=== PATIENT | male | born 1970 | race Two or more races ===

== ENCOUNTER 2023-06-11 00:47 | Emergency (ER) | payer MEDICAID, OTHER ==
[~2023-06-11] VITALS: Ht 195.6 cm; Wt 125.0 kg
[2023-06-11 03:34] LABS: Basophils # (auto) 0.1 10 ^3/uL (0-0.2); Basophils % (auto) 1.3 % (0.0-2.0); Eosinophils # (auto) 0.3 10 ^3/uL (0-0.8); Monocytes # (auto) 0.5 10 ^3/uL (0-1.3); White Blood Cell 7.1 10^3/uL (4.4-10.8)
[2023-06-11 03:35] LABS: Eosinophils % (auto) 4.8 % (0.0-7.0); Hematocrit 38.6 % (41.0-53.0); Hemoglobin 12.3 g/dL (13.5-17.5); Lymphocytes % (auto) 28.2 % (10.0-50.0); Mean Corpuscular Hemoglobin 23.4 pg (28.0-32.0); Mean Corpuscular Hgb Conc. 31.9 g/dL (32.0-36.0); Mean Corpuscular Volume 73.5 fL (80.0-100.0); Monocytes % (auto) 6.7 % (0.0-12.0); Neutrophils # (auto) 4.2 10 ^3/uL (1.6-8.6); Nucleated Red Blood Cells % 0.2 %; Red Blood Cells 5.26 10^6/uL (4.5-5.90); Red Cell Distribution Width 16.3 % (11.8-14.3)
[2023-06-11 03:48] LABS: Albumin 4.1 g/dL (3.4-5.0); BUN/Creatinine Ratio 14.1 (10.0-20.0); Magnesium 2.4 mg/dL (1.6-2.6); Potassium 3.8 mmol/L (3.5-5.1)
[2023-06-11 03:49] LABS: INR 1.01 (0.9-1.15); Prothrombin Time 10.6 sec (9.3-11.8)
[2023-06-11 03:51] LABS: Bilirubin, Total 0.3 mg/dL (0.2-1.0); Total Protein 7.9 g/dL (6.4-8.2)
[2023-06-11 04:29] LABS: Partial Thromboplastin Time 30.2 SEC (24.5-34.5)
[2023-06-11 06:34] LABS: Urine Bacteria NONE SEEN /hpf (None Seen); Urine Blood Negative /uL (Negative); Urine Clarity Clear (Clear); Urine Color Yellow (Yellow); Urine Mucus FEW (None Seen); Urine Protein, UAD Negative (Negative); Urine Specific Gravity 1.028 (1.001-1.035); Urine Urobilinogen Normal (Negative); Urine WBC 1 /hpf (0 - 3); Urine pH 5.5 (5.0-8.0)
[2023-06-11 08:22] VITALS: BP 118/63; PULSE 53; RESP 16; TEMP 97.9; O2SAT 98
== END 2023-06-11 08:06 | disposition home or self-care (01) ==
LOC: ER 00:51
DX: R60.0 Localized edema (principal); R53.1 Weakness; R20.0 Anesthesia of skin
CPT/HCPCS: 36415; 71045; 80053; 81001; 83605; 83735; 83880; 84484; 85025; 85379; 85610; 85730; 87040; 93970

== ENCOUNTER 2025-04-16 17:45 | Emergency (ER) | payer MEDICAID ==
[~2025-04-16] VITALS: Ht 185.4 cm; Wt 129.7 kg
--- NOTE | 2025-04-16 18:16 | ED.PDOC ---
Musculoskeletal HPI Comments HPI: 54-year-old male presents to the emergency department with a chief complaint of bilateral leg swelling onset 3 days. Patient began experiencing bilateral leg swelling 3 days ago, went to urgent care, was recommended to come to ED. Patient waited a few days, has been elevating legs, noticed swelling has significantly improved. He came to ED today due to fatigue, swelling not resolved. Denies any chest pain, shortness of breath, fever, chills, nausea, vomiting, diarrhea. No other symptoms or modifying factors present at this time. Initial Vitals BP: 112/79 HR: 60 RR: 18 O2 Sat: 98% Past Medical history: Neuropathy Past Surgical history: Denies Medications: Denies Social History: Denies Allergies: NKDA HPI: Poor Historian. REVIEW OF SYSTEMS: CONSTITUTIONAL: Denies acute: fever, diaphoresis, chills, HEAD: Denies acute: headache, photophobia Eyes: Denies acute: Double vision, vision loss, eye pain, eye discharge. EARS: Denies acute: tinnitus, hearing loss, ear discharge, ear pain, THROAT: Denies acute: sore throat, swelling, difficulty swallowing , pain with swallowing, change in voice. NECK: Denies acute: neck pain, neck swelling, stiff neck. HEART: Denies acute : chest pain, palpitations, LUNGS: Denies acute: SOB, wheezing, cough, hemoptysis ABDOMEN: Denies acute: abdominal pain, Nausea, Vomiting, diarrhea, melena , hematemesis, hematochezia SKIN: Denies acute: rash, redness, lesions, itchiness. EXTREMITIES: Denies acute: calf pain, numbness, tingling, weakness, Denies acute: Low back pain. Neuro: Denies acute: focal neurological deficit, motor or sensory focal neurological deficit, tremors, seizure like activity, confusion, dizziness, change in mental status, loss of bowel or bladder function, cauda equina like symptoms. : Denies acute: dysuria, hematuria, flank pain, increase in urinary frequency. PSYCH: Denies acute: hallucination, suicidal ideation, homicidal ideation. FEMALE: Denies acute: abnormal vaginal bleeding, foul odor, unusual discharge. PHYSICAL EXAM: General: -----no---acute distress, awake and alert. Head: normocephalic, atraumatic. Neck: supple, trachea is midline, no swelling. Throat: Normal phonation. Eyes:, no erythema, no purulent discharge, no proptosis, no icterus. Heart: regular rate, regular rhythm, no significant murmur appreciated. Lungs: no apparent respiratory distress, Able to speak in full sentences. No wheezing, no rhonchi, no crackles. No stridors Clear to auscultation bilaterally. Abdomen: non tender to palpation, non distended, soft, no guarding, no rebound, + bowel sounds. Neuro: Awake, Alert, oriented to name, self, situation, follows commands GCS=15. Speech is normal. Skin: no petechia, no purpura, no cyanosis, non-pale, not jaundice. Lower extremities: --no - Pitting edema no deformity, no focal swelling, no calf TTP. Makes eye contact. moves all four extremities. Face: no apparent facial droop. Ambulating in the ED independently. Pedal pulses are palpable. Bilaterally. Patient is neurovascularly intact bilateral lower extremities. ED COURSE: DISCLAIMER: This medical document was created using an electronic medical record system with voice recognition software and computerized dictation system. Although this document has been carefully reviewed, there might still be some phonetic and typographical errors. Occasional wrong-word or "sound-alike" substitutions may have occurred due to the inherent limitations of voice recognition software. These areas are purely typographical due to imperfections of the software programs and do not reflect any compromise in the patient's medical care. Please read the chart carefully and recognize, using context, where these substitutions have occurred. Time Seen by MD: 18:10 Reviewed Notes: Medications, Allergies Allergies: Coded Allergies: NO KNOWN ALLERGIES (Unverified , 04/16/25) Information Source: Patient Mode of Arrival: Ambulatory Location: Bilateral Extremity Location: Leg Timing: Days Prehospital treatment: None Severity: Moderate Able to Move Extremity: Yes Bear Weight: Fully Pain: Moderate Mechanism: Spontaneous Circumstances: Spontaneous Onset of Symptoms: Spontaneous Symptoms: Swelling DVT Risk Factors: NONE Associated signs and symptoms: Leg pain Past Medical History Past Medical History (Other): Neuropathy Surgical History: Denies all surgeries Family History Family History: Reviewed,noncontributory to illness Social History Smoker: Non-Smoker Alcohol: Denies ETOH Use Drugs: Denies Drug Use Lives In: Home Was a procedure done? Was a procedure done?: No Differential Diagnosis EXT Differential Diagnosis: Cellulitis, CHF, Deep Vein Thrombosis, Compartment Syndrome, Fracture, Sprain, DJD, Myocardial Infarction, Neurovascular injury X-Ray, Labs, Meds, VS Vital Signs Date Time Temp Pulse Resp B/P (MAP) Pulse Ox O2 Delivery O2 Flow Rate FiO2 04/16/25 19:53 98.7 50 16 112/73 (86) 99 98.7 04/16/25 19:53 50 16 99 Room Air 04/16/25 18:05 97.6 60 18 112/79 (90) 98 97.6 Lab Test 04/16/25 18:38 Range/Units White Blood Count 6.3 4.4-10.8 10^3/uL Red Blood Count 5.68 4.5-5.90 10^6/uL Hemoglobin 13.3 L 13.5-17.5 g/dL Hematocrit 41.1 41.0-53.0 % Mean Corpuscular Volume 72.3 L 80.0-100.0 fL Mean Corpuscular Hemoglobin 23.5 L 28.0-32.0 pg Mean Corpuscular Hemoglobin Concent 32.5 32.0-36.0 g/dL Red Cell Distribution Width 15.9 H 11.8-14.3 % Platelet Count 180 140-450 10^3/uL Mean Platelet Volume 8.6 6.9-10.8 fL Neutrophils (%) (Auto) 64.4 37.0-80.0 % Lymphocytes (%) (Auto) 25.2 10.0-50.0 % Monocytes (%) (Auto) 5.7 0.0-12.0 % Eosinophils (%) (Auto) 3.7 0.0-7.0 % Basophils (%) (Auto) 1.0 0.0-2.0 % Neutrophils # (Auto) 4.1 1.6-8.6 10 ^3/uL Lymphocytes # (Auto) 1.6 0.4-5.4 10 ^3/uL Monocytes # (Auto) 0.4 0-1.3 10 ^3/uL Eosinophils # (Auto) 0.2 0-0.8 10 ^3/uL Basophils # (Auto) 0.1 0-0.2 10 ^3/uL Nucleated Red Blood Cells 0.1 % Sodium Level 145 136-145 mmol/L Potassium Level 3.3 L 3.5-5.1 mmol/L Chloride Level 109 H 98-107 mmol/L Carbon Dioxide Level 25 20-31 mmol/L Anion Gap 11 5-15 Blood Urea Nitrogen 12 9-23 mg/dL Creatinine 1.06 0.700-1.30 mg/dL Glomerular Filtration Rate Calc 84 >90 mL/min BUN/Creatinine Ratio 11.3 10.0-20.0 Serum Glucose 78 74-106 mg/dL Calcium Level 9.9 8.7-10.4 mg/dL Total Bilirubin 0.7 0.2-1.0 mg/dL Aspartate Amino Transferase (AST) 19 <34 U/L Alanine Aminotransferase (ALT) 17 7-40 U/L Alkaline Phosphatase 67 46-116 U/L Troponin I High Sensitivity 5 </=54 ng/L C-Reactive Protein High Sensitivity 0.04 <1.0 mg/dL B-Type Natriuretic Peptide 45.89 0-100 pg/mL Total Protein 7.3 5.7-8.2 g/dL Albumin 4.8 3.2-4.8 g/dL [place] [address] Ph: [phone] DIAGNOSTIC IMAGING Diagnostic Imaging Report : [id number] Signed PATIENT: KENDY AMAYA ACCT: [id number] UNIT: [id number] : 1970 LOC: ER ROOM / BED: / AGE / SEX: 54 / M ADM STATUS: REG ER SERVICE [id number] ORDERING PHYSICIAN: MARY GROSS DO PROCEDURE(s): BLDVT - BiLat Lower DVT REASON: b/l leg swelling ORDER NUMBER(s): [id number], ACCESSION NUMBER(s): [id number] EXAM: US Duplex Bilateral Lower Extremities Veins CLINICAL INDICATION: b/l leg swelling TECHNIQUE: Real-time duplex ultrasound scan of the bilateral lower extremity veins integrating B-mode two-dimensional vascular structure, Doppler spectral analysis, color flow Doppler imaging and compression. COMPARISON: None FINDINGS: RIGHT DEEP VEINS: Unremarkable. No DVT in the right common femoral, femoral, proximal deep femoral or popliteal veins. The veins demonstrate normal color flow, are normally compressible, with normal phasic flow and/or augmentation response. RIGHT SUPERFICIAL VEINS: Unremarkable. No thrombus in the visualized right great saphenous vein. LEFT DEEP VEINS: Unremarkable. No DVT in the left common femoral, femoral, proximal deep femoral or popliteal veins. The veins demonstrate normal color flow, are normally compressible, with normal phasic flow and/or augmentation response. LEFT SUPERFICIAL VEINS: Unremarkable. No thrombus in the visualized left great saphenous vein. SOFT TISSUES: No acute findings. No popliteal cyst. OTHER FINDINGS: . IMPRESSION: No DVT. ATED BY: ALICIA JANSEN MD DICTATED DATE/TIME: 04/16/251912 SIGNED BY: ALICIA JANSEN MD SIGNED DATE/TIME: 04/16/251912 CC: Time of 1ST Reevaluation: 18:40 Reevaluation 1ST: Unchanged Patient Education/Counseling: Diagnosis, Treatment Family Education/Counseling: No Family Present Comments Patient presented with the above HPI.---leg swelling---workup was initiated. patient was found with the above mentioned diagnosis. Patient has no leg swelling on physical exam. He said his swelling has significantly improved if not completely resolved. He has history of neuropathy. the following medications were ordered: please refer to order lists of meds and tests obtained by myself Dr. Gross. Patient ED course and VS have been stabilized. Patient has been reassessed in the ED and remained in a stable condition. Pertinent incidental findings were discussed with the patient and/or family. Patient/family voices understanding and is agreeable with plan. Patient has been observed in the ED adequate length of time to insure improvement/stability. Escalation of care considered: Consideration of escalation to observation or admission Patient was DISCHARGED home in a stable condition. All the reports of any imaging studies that were ordered by myself were reviewed by myself. Departure 1 Departure Time of Disposition: 20:01 Impression: Primary Impression: Leg edema Additional Impression: Neuropathy Disposition: 01 HOME / SELF CARE / HOMELESS Condition: Stable Additional Instructions: Additional instructions: You MUST follow-up with your primary care/family doctor in 1 to 2 days. If you are unable to see your primary care/family doctor, please return to our emergency room for re-assessment and re-evaluation in 1 to 2 days. Return to the emergency room here in our facility or to the nearest ER [facility] if your symptoms change or worsen. CONSULTATIONS: you MUST Follow-up for consultation as soon as possible with: -vascular medicine doctor in 1-2 days. Please call for appointment You MUST call the consultants office yourself to make an appointment. You may need to arrange that through your insurance and/or your primary/family doctor. If you are unable to see the pharmacy consultant in 1 to 2 days, you must return to our emergency room (or any other ER of your choice) for re-assessment and re- evaluation. Adequate fluid hydration. If symptoms persist repeat extremity ultrasound in 4-5 days. Leg elevation, compression stockings. Below is a copy of your radiological report for follow up: [place] [address] Ph: [phone] DIAGNOSTIC IMAGING Diagnostic Imaging Report : [id number] Signed PATIENT: KENDY AMAYA ACCT: [id number] UNIT: [id number] : 1970 LOC: ER ROOM / BED: / AGE / SEX: 54 / M ADM STATUS: REG ER SERVICE [id number] ORDERING PHYSICIAN: MARY GROSS DO PROCEDURE(s): BLDVT - BiLat Lower DVT REASON: b/l leg swelling ORDER NUMBER(s): [id number], ACCESSION NUMBER(s): [id number] EXAM: US Duplex Bilateral Lower Extremities Veins CLINICAL INDICATION: b/l leg swelling TECHNIQUE: Real-time duplex ultrasound scan of the bilateral lower extremity veins integrating B-mode two-dimensional vascular structure, Doppler spectral analysis, color flow Doppler imaging and compression. COMPARISON: None FINDINGS: RIGHT DEEP VEINS: Unremarkable. No DVT in the right common femoral, femoral, proximal deep femoral or popliteal veins. The veins demonstrate normal color flow, are normally compressible, with normal phasic flow and/or augmentation response. RIGHT SUPERFICIAL VEINS: Unremarkable. No thrombus in the visualized right great saphenous vein. LEFT DEEP VEINS: Unremarkable. No DVT in the left common femoral, femoral, proximal deep femoral or popliteal veins. The veins demonstrate normal color flow, are normally compressible, with normal phasic flow and/or augmentation response. LEFT SUPERFICIAL VEINS: Unremarkable. No thrombus in the visualized left great saphenous vein. SOFT TISSUES: No acute findings. No popliteal cyst. OTHER FINDINGS: . IMPRESSION: No DVT. ATED BY: ALICIA JANSEN MD DICTATED DATE/TIME: 04/16/251912 SIGNED BY: ALICIA JANSEN MD SIGNED DATE/TIME: 04/16/251912 CC: Discharged With: Self Critical Care Note Critical Care Time?: No I personally scribed for MARY GROSS DO ([email or web address]) on 04/16/25 at 18:15. Electronically submitted by Denita Stiles ([email or web address]). I personally scribed for MARY GROSS DO ([email or web address]) on 04/16/25 at 19:20. Electronically submitted by Denita Stiles ([email or web address]). MARY GROSS DO Apr 16, 2025 18:15
[2025-04-16 19:07] LABS: Basophils # (auto) 0.1 10 ^3/uL (0-0.2); Eosinophils # (auto) 0.2 10 ^3/uL (0-0.8); Eosinophils % (auto) 3.7 % (0.0-7.0); Hematocrit 41.1 % (41.0-53.0); Hemoglobin 13.3 g/dL (13.5-17.5); Lymphocytes # (auto) 1.6 10 ^3/uL (0.4-5.4); Lymphocytes % (auto) 25.2 % (10.0-50.0); Mean Corpuscular Hemoglobin 23.5 pg (28.0-32.0); Mean Corpuscular Hgb Conc. 32.5 g/dL (32.0-36.0); Mean Corpuscular Volume 72.3 fL (80.0-100.0); Monocytes # (auto) 0.4 10 ^3/uL (0-1.3); Monocytes % (auto) 5.7 % (0.0-12.0); Neutrophils # (auto) 4.1 10 ^3/uL (1.6-8.6); Neutrophils % (auto) 64.4 % (37.0-80.0); Nucleated Red Blood Cells % 0.1 %; Platelet Count (auto) 180 10^3/uL (140-450); Red Blood Cells 5.68 10^6/uL (4.5-5.90); Red Cell Distribution Width 15.9 % (11.8-14.3); White Blood Cell 6.3 10^3/uL (4.4-10.8)
--- NOTE | 2025-04-16 19:16 | DVH ---
EXAM: US Duplex Bilateral Lower Extremities Veins CLINICAL INDICATION: b/l leg swelling TECHNIQUE: Real-time duplex ultrasound scan of the bilateral lower extremity veins integrating B-mod e two-dimensional vascular structure, Doppler spectral analysis, color flow Doppler imaging and compr ession. COMPARISON: None FINDINGS: RIGHT DEEP VEINS: Unremarkable. No DVT in the right common femoral, femoral, proximal deep femoral or popliteal veins. The veins demonstrate normal color flow, are normally compressible, with normal phasic flow and/or augmentation response. RIGHT SUPERFICIAL VEINS: Unremarkable. No thrombus in the visualized right great saphenous vein. LEFT DEEP VEINS: Unremarkable. No DVT in the left common femoral, femoral, proximal deep femoral o r popliteal veins. The veins demonstrate normal color flow, are normally compressible, with normal p hasic flow and/or augmentation response. LEFT SUPERFICIAL VEINS: Unremarkable. No thrombus in the visualized left great saphenous vein. SOFT TISSUES: No acute findings. No popliteal cyst. OTHER FINDINGS: . IMPRESSION: No DVT.
[2025-04-16 19:31] LABS: Alanine Aminotransferase 17 U/L (7-40); Alkaline Phosphatase 67 U/L (46-116); Anion Gap 11 (5-15); BUN/Creatinine Ratio 11.3 (10.0-20.0); Blood Urea Nitrogen 12 mg/dL (9-23); CRP High Sensitivity 0.04 mg/dL (<1.0); Calcium 9.9 mg/dL (8.7-10.4); Carbon Dioxide 25 mmol/L (20-31); Glucose 78 mg/dL (74-106); Sodium 145 mmol/L (136-145); Total Protein 7.3 g/dL (5.7-8.2)
[2025-04-16 19:32] LABS: Albumin 4.8 g/dL (3.2-4.8); Aspartate Aminotransferase 19 U/L (<34); Bilirubin, Total 0.7 mg/dL (0.2-1.0)
[2025-04-16 19:33] LABS: Chloride 109 mmol/L (98-107); Potassium 3.3 mmol/L (3.5-5.1)
[2025-04-16 19:53] VITALS: BP 112/73; PULSE 50; RESP 16; TEMP 98.7; O2SAT 99
== END 2025-04-16 21:06 | disposition home or self-care (01) ==
LOC: ER 17:54
DX: R60.0 Localized edema (principal); G62.9 Polyneuropathy, unspecified
CPT/HCPCS: 36415; 80053; 83880; 84484; 85025; 86141; 93970

== ENCOUNTER 2025-04-29 19:18 | Emergency (ER) | payer MEDICAID ==
[~2025-04-29] VITALS: Ht 195.6 cm; Wt 129.0 kg
[2025-04-29 19:30] VITALS: BP 116/77; PULSE 62; RESP 16; TEMP 98.2; O2SAT 100
--- NOTE | 2025-04-29 20:00 | ED.PDOC ---
Eye-HPI HPI Comments pt arrived in ER due to right ear difficulty hearing x 2 days. VSS. Denies pain or any other symptoms. No distress present Chief Complaint: Earache Time Seen by MD: 19:23 Reviewed Notes: Nurses Notes, Medications, Allergies Allergies: Coded Allergies: NO KNOWN ALLERGIES (Unverified , 04/16/25) Information Source: Patient Past Medical History PAST MEDICAL HISTORY: Denies Surgical History: Denies all surgeries Family History Family History: Reviewed,noncontributory to illness Social History Smoker: Non-Smoker Alcohol: Denies ETOH Use Drugs: Denies Drug Use Lives In: Home Constitutional: denies: chills, diaphoresis, fatigue, fever, malaise, sweats, weakness, others EENTM: reports: ear pain; denies: blurred vision, double vision, ear bleeding, ear discharge, ear drainage, ear ringing, eye pain, eye redness, hearing loss, mouth pain, mouth swelling, nasal discharge, nose bleeding, nose congestion, nose pain, photophobia, tearing, throat pain, throat swelling, voice changes, others Respiratory: denies: cough, hemoptysis, orthopnea, SOB at rest, shortness of breath, SOB with excertion, stridor, wheezing, others Cardiovascular: denies: chest pain, dizzy spells, diaphoresis, Dyspnea on exertion, edema, irregular heart beat, left arm pain, lightheadedness, palpitations, PND, syncope, others Gastrointestinal: denies: abdomen distended, abdominal pain, blood streaked bowels, constipated, diarrhea, dysphagia, difficulty swallowing, hematemesis, melena, nausea, poor appetite, poor fluid intake, rectal bleeding, rectal pain, vomiting, others Genitourinary: denies: burning, dysuria, flank pain, frequency, hematuria, incontinence, penile discharge, penile sore, pain, testicle pain, testicle swelling, urgency, others Neurological: denies: dizziness, fainting, headache, left sided numbness, left sided weakness, numbness, paresthesia, pre-existing deficit, right sided numbness, right sided weakness, seizure, speech problems, tingling, tremors, weakness, others Musculoskeletal: denies: back pain, gout, joint pain, joint swelling, muscle pain, muscle stiffness, neck pain, others Integumetry: denies: bruises, change in color, change in hair/nails, dryness, laceration, lesions, lumps, rash, wounds, others Allergic/Immunocompromised: denies: Difficulty Healing, Frequent Infections, Hives, Itching, others Hematologic/Lymphatic: denies: anemia, blood clots, easy bleeding, easy bruising, swollen glands, others Endocrine: denies: excessive hunger, excessive sweating, excessive thirst, excessive urination, flushing, intolerance to cold, intolerance to heat, unexplained weight gain, unexplained weight loss, others Psychiatric: denies: anxiety, bipolar disorder, depression, hopeless, panic disorder, schizophrenia, sleepless, suicidal, others Physical Exam General Appearance: No Apparent Distress, Normal HEENT: Normal ENT Inspection, Pharynx Normal, TM Abnormal (L) (WNL), TM Abnormal (R) (NOT VISUALIZED), Other (RIGHT EAR NOTED CERUMEN IMPACTION) Neck: Full Range of Motion, Non-Tender Respiratory: Lungs Clear, No Respiratory Distress, Normal Breath Sounds Cardiovascular: No Murmur, Normal Peripheral Pulses, Regular Rate/Rhythm Breast Exam: Deferred Gastrointestinal: Non Tender, Soft Genitalia: Deferred Pelvic: Deferred Rectal: Deferred Extremities: Normal range of motion Musculoskeletal : Apperance: Normal Neurologic: Alert, No Motor Deficits, Normal Affect, Normal Mood, No Sensory Deficits Cerebellar Function: Normal Reflexes: Normal Skin: Dry, Normal Color, Warm Lymphatic: No Adenopathy Was a procedure done? Was a procedure done?: Yes Sedation Sedation?: No Informed consent obtained: Yes Foreign Body Removal Foreign body in: Ear Anesthetic: Nothing Prep: Saline, Irrigation Procedure: Removed Informed consent obtained: Yes Risks/benefits/alt described: Yes Notes PATIENT TOLERATED WELL HEARING INTACT NO NOTED DIZZINESS. EENT DIFF Eye: N/A Ear: Cerumen Impaction, Foreign Body, Otitis Externa, Barotrauma, Otitis Media, Perforation, Dental, Pharyngitis X-Ray, Labs, Meds, VS Vital Signs Date Time Temp Pulse Resp B/P (MAP) Pulse Ox O2 Delivery O2 Flow Rate FiO2 04/29/25 19:30 98.2 62 16 116/77 (90) 100 98.2 X-Ray, Labs, Meds, VS Comment WITH LEFT EAR LAVAGE SUCCESSFUL. PATIENT STATES IMPROVEMENT IN PAIN AND HEARING REQUESTING DISCHARGE AT THIS TIME. ADVISED TO FOLLOW UP WITH HIS PCP NEEDED ER RETURN PRECAUTIONS GIVEN PATIENT INDICATES UNDERSTANDING AND AGREES WITH DISCHARGE PLAN OF CARE. Images Reviewed?: Images reviewed and evaluated by me Time of 1ST Reevaluation: 19:23 Reevaluation 1ST: Unchanged Time of 2ND Reevaluation: 20:20 Reevaluation 2ND: Improved Patient Education/Counseling: Diagnosis, Treatment, Prognosis, Need For Follow Up Family Education/Counseling: No Family Present SEPSIS Sepsis Screen Vital Signs Date Time Temp Pulse Resp B/P (MAP) Pulse Ox O2 Delivery O2 Flow Rate FiO2 04/29/25 19:30 98.2 62 16 116/77 (90) 100 98.2 Departure 1 Departure Time of Disposition: 20:20 Impression: Primary Impression: Impacted cerumen, right ear Disposition: HOME / SELF CARE / HOMELESS Condition: Stable Discharged With: Self Critical Care Note Critical Care Time?: No Stability Stability form required: NIKKI Hou Apr 29, 2025 20:00
== END 2025-04-29 21:06 | disposition home or self-care (01) ==
LOC: ER 19:18
DX: H61.21 Impacted cerumen, right ear (principal)
CPT/HCPCS: 69209

== ENCOUNTER 2025-05-11 19:38 | Emergency (ER) | payer MEDICAID ==
[~2025-05-11] VITALS: Ht 195.6 cm; Wt 125.9 kg
--- NOTE | 2025-05-11 20:11 | ED.PDOC ---
Musculoskeletal HPI Comments 55 year old male presents to the ED with a chief complaint of bilateral leg numbness onset 1 month. Patient states he has been experiencing intermittent bilateral leg numbness for the past 2 years, noticed symptoms worsened 1 month ago. Patient was seen in this ED on 04/16/25 due to bilateral leg edema with numbness, had negative US, was recommended to follow up with PCP for Vascular specialist referral. Patient is being followed by a neurologist and was prescribed ibuprofen for knee stiffness. Patient has appointment with Neurologist and Vascular specialist in May 2025. Came to ED today, no improvement of symptoms. PMHx Neuropathy. Denies trauma, fall, injury, nausea, vomiting, diarrhea, chest pain, dizziness, shortness of breath, fevers, chills. No other symptoms or modifying factors present at this time. Time Seen by MD: 20:00 Reviewed Notes: Medications, Allergies Allergies: Coded Allergies: NO KNOWN ALLERGIES (Unverified , 04/16/25) Information Source: Patient Mode of Arrival: Ambulatory Location: Bilateral Extremity Location: Foot, Leg Timing: Months Prehospital treatment: None Severity: Moderate Able to Move Extremity: Yes Bear Weight: Fully Pain: Moderate Mechanism: Spontaneous Circumstances: Spontaneous Onset of Symptoms: Spontaneous Symptoms: Swelling DVT Risk Factors: NONE Associated signs and symptoms: Leg pain, Foot pain Vital Signs Vital Signs Date Time Temp Pulse Resp B/P (MAP) Pulse Ox O2 Delivery O2 Flow Rate FiO2 05/11/25 19:50 98.2 96 18 133/79 (97) 100 98.2 Physical Exam PHYSICAL EXAM: General: Awake, alert and oriented. No acute distress. Skin: Skin in warm, dry and intact. Appropriate color for ethnicity. HEENT: The head is normocephalic and atraumatic. Conjunctivae are clear without exudates or hemorrhage. Sclera is non-icteric. EOM are intact. No signs of nystagmus. Eyelids are normal in appearance without swelling or lesions. Oral mucosa is pink and moist Neck: The neck is supple with normal range of motion. No JVD. Cardiac: Heart rate and rhythm are normal. No murmurs, gallops, or rubs are auscultated. Respiratory: No signs of respiratory distress. Lung sounds are clear in all lobes bilaterally without rales, rhonchi, or wheezes. Abdominal: Abdomen is soft, non-tender without distention, guarding or rigidity. Bowel sounds are present and normoactive in all four quadrants. Extremities: Nonpitting bilateral lower extremity edema. Good DP pulse, normal capillary refill. Sensation intact in the bilateral lower extremities. No posterior calf tenderness. No significant knee effusion bilaterally. Neurological: The patient is awake, alert and oriented to person, place, and time with normal speech. Speech is clear. There is no facial asymmetry. Psychiatric: Appropriate mood and affect. Good judgement and insight. Review of Systems: REVIEW OF SYSTEMS: General: No fever, no chills, or fatigue HEENT: No sore throat, no earache, no congestion, no neck pain. Cardiac: No chest pain. No palpitations. Lungs: No shortness of breath, no cough. GI: No nausea, no vomiting, no diarrhea, no constipation, no abdominal pain : No dysuria, frequency, or urgency. No hematuria. Musculoskeletal: No joint pain , no joint swelling, positive bilateral lower extremity swelling Skin: No rash, no itching. Neuro: No headache, no dizziness, no weakness, positive bilateral lower extremity paresthesias Past Medical History Past Medical History (Other): neuropathy Surgical History: Denies all surgeries Family History Family History: Reviewed,noncontributory to illness Social History Smoker: Non-Smoker Alcohol: Denies ETOH Use Drugs: Denies Drug Use Lives In: Home Was a procedure done? Was a procedure done?: No Differential Diagnosis EXT Differential Diagnosis: Cellulitis, CHF, Deep Vein Thrombosis, Compartment Syndrome, Gout, DJD, Rheumatoid, Neurovascular injury, Arthritis, Bursitis, Other X-Ray, Labs, Meds, VS Vital Signs Date Time Temp Pulse Resp B/P (MAP) Pulse Ox O2 Delivery O2 Flow Rate FiO2 05/11/25 19:50 98.2 96 18 133/79 (97) 100 98.2 Time of 1ST Reevaluation: 20:30 Reevaluation 1ST: Improved Patient Education/Counseling: Need For Follow Up Family Education/Counseling: No Family Present Departure 1 Departure Time of Disposition: 20:13 Impression: Primary Impression: Peripheral edema Additional Impression: Neuropathy Disposition: 01 HOME / SELF CARE / HOMELESS Condition: Stable Additional Instructions: ED DISCHARGE INSTRUCTIONS INSTRUCTIONS: PLEASE READ ALL INSTRUCTIONS PROVIDED IN THIS PACKET CAREFULLY. WEAR COMPRESSION STOCKINGS DURING THE DAY TO HELP WITH SWELLING. KEEP UPCOMING APPOINTMENTS WITH SPECIALISTS RECOMMENDED BY YOUR PRIMARY CARE PROVIDER. ALTHOUGH YOU HAVE BEEN DISCHARGED FROM THE EMERGENCY DEPARTMENT, THIS DOES NOT MEAN THAT YOU HAVE A "CLEAN BILL OF HEALTH". NO DEFINITIVE DIAGNOSIS FOR YOUR SYMPTOMS HAS BEEN MADE TODAY. IT IS POSSIBLE THAT YOU ARE IN THE PROCESS OF DEVELOPING A SERIOUS ILLNESS. THIS IS WHY YOU MUST RETURN TO THE ED WITHOUT FAIL IF ANY NEW OR WORSENING SYMPTOMS (ESPECIALLY IF YOUR SYMPTOMS INCLUDE CHEST PAIN, TROUBLE BREATHING, ABDOMINAL PAIN, FEVER, HEADACHE, CONFUSION, TROUBLE SEEING, OR TROUBLE WALKING) IT IS ALSO VERY IMPORTANT THAT YOU SEE A PRIMARY CARE PROVIDER (PCP) WITHIN THE NEXT 3-5 DAYS TO FOLLOW UP. IF YOU ARE UNABLE TO GET AN APPOINTMENT, RETURN TO THE ED FOR RE-EVALUATION. Comments MDM: 55-year-old male with a history of peripheral neuropathy presents with lower extremity edema. Patient's symptoms not worsened from previous visit. Patient neurovascularly intact on exam. No sign of congestive heart failure, limb ischemia or DVT. No other concerning symptoms including chest pain, shortness of breath. Patient felt stable for discharge home to follow up with the primary care provider for further evaluation. I reviewed the following notes from the pt's past medical encounters: Encounter April 16 for a lower extremity edema The following tests were ordered, and results were reviewed by me: (See diagnostic results section) The following test were independently interpreted by me: N/A Additional information was gathered from interviewing the following independent historians: N/A I reviewed and agreed with the following test results read by other providers: N/A I discussed treatments and results with patient Decision regarding hospitalization or escalation of hospital level of care: Risks and benefits of admission for further treatment of patient's condition was considered however due to patient's stable condition patient will be discharged to follow up closely or return to care for worsening of condition or inability to follow up. Critical Care Note Critical Care Time?: No Stability Stability form required: No I personally scribed for MARLA CAPELLAN MD ([email or web address]) on 05/11/25 at 20:11. Electronically submitted by Denita Stiles ([email or web address]). MARLA CAPELLAN MD May 11, 2025 20:11
[2025-05-11 22:11] VITALS: BP 109/67; PULSE 73; RESP 20; TEMP 98.2; O2SAT 100
== END 2025-05-11 22:15 | disposition home or self-care (01) ==
LOC: ER 19:38
DX: R60.0 Localized edema (principal); G62.9 Polyneuropathy, unspecified